=== PATIENT | male | born 1975 | race Caucasian/White ===

== ENCOUNTER 2022-12-05 07:47 | Observation (INO) | payer OTHER ==
[2022-12-05] MEDS ORDERED: SODIUM CHLORIDE 0.9% 1,000 ML IV STA (08:00)
[2022-12-05 08:11] LABS: BASOPHILS % (AUTO) 0.3 %; EOSINOPHILS % (AUTO) 0.5 %; HCT - HEMATOCRIT 45.4 % (42.0-52.0); HGB - HEMOGLOBIN 15.9 g/dL (14.0-18.0); LYMPHOCYTES # (AUTO) 0.8 10^3/uL (1.5-3.5); MEAN CORPUSCULAR HEMOGLOBIN 31.3 pg (27.0-31.0); MEAN CORPUSCULAR VOLUME 89.4 fL (80.0-94.0); MEAN PLATELET VOLUME 8.7 fL (7.4-11.4); MONOCYTES # (AUTO) 0.9 10^3/uL (0.0-1.0); MONOCYTES % (AUTO) 12.6 %; NEUTROPHILS # (AUTO) 5.5 10^3/uL (1.5-6.6); NEUTROPHILS % (AUTO) 75.5 %; PLT - PLATELET COUNT 252 10^3/uL (130-450); RED BLOOD COUNT 5.08 10^6/uL (4.70-6.10); WHITE BLOOD COUNT 7.3 x10^3/uL (4.8-10.8)
[2022-12-05 08:12] LABS: GLUCOSE, URINE (UA) NEGATIVE (NEGATIVE); KETONES,URINE (UA) 15 mg/dL (NEGATIVE); LEUKOCYTE ESTERASE, URINE NEGATIVE (NEGATIVE); NITRITE,URINE NEGATIVE (NEGATIVE); OCCULT BLOOD,URINE SMALL (NEGATIVE); PROTEIN,URINE 30 mg/dL (NEGATIVE); UROBILINOGEN,URINE 0.2 (NORMAL) E.U./dL (NORMAL)
[2022-12-05 08:17] LABS: BILIRUBIN,URINE NEGATIVE (NEGATIVE); CLARITY,URINE CLEAR (CLEAR); ICTOTEST,URINE NEGATIVE
[2022-12-05 08:19] LABS: WBC,URINE 0-3 /HPF (0-3)
[2022-12-05 08:20] LABS: BACTERIA,URINE Few /HPF (None Seen); MUCUS,URINE Few Strands; SQUAMOUS EPITHELIAL CELL,UR RARE Squamous (<= Few)
--- NOTE | 2022-12-05 08:20 | ED Physician Documentation ---
History of Present Illness - Stated complaint Stated Complaint: ABD PX - Chief complaint Chief Complaint: Abd Pain - History obtained from History obtained from: Patient - Additonal information Additional information: The patient comes to the emergency department chief complaint of left lower quadrant pain for about the last 5 days. He states that he has a baseline of discomfort but then especially at night, he will feel escalations in his pain which feels sharp. He states he has not really been having much of any bowel movements except for a little liquid stool here and there. He states he has not been nauseated but just was not having much of an appetite and so for the first 3 days, he really did not eat anything. He states it did not help and he was starting to get weak with hunger so then he started to eat again, but has not been back up to his full diet for the last couple days. He denies blood in his stools. No vomiting. No fever or chills that he has noticed except that he d oes sweat a bit when the pain gets bad. He has a history of both kidney stone and diverticulitis previously. He states he had to have lithotripsy on one of the stones because it was 7 mm and would not pass. He states this feels more like when he had diverticulitis. No other complaints at this time. PD PAST MEDICAL HISTORY - Past Medical History Past Medical History: Yes GI: Diverticulitis : Kidney stones - Past Surgical History Past Surgical History: Yes - Present Medications Home Medications: Ambulatory Orders Medication Instructions Recorded Confirmed No Known Home Medications 12/05/22 12/05/22 - Allergies Allergies/Adverse Reactions: Allergies Allergy/AdvReac Type Severity Reaction Status Date / Time No Known Drug Allergies Allergy Verified 12/05/22 07:53 - Social History Does the pt smoke?: No Smoking Status: Never smoker Does the pt drink ETOH?: No Does the pt have substance abuse?: No - Immunizations Immunizations are current?: Yes PD ED PE NORMAL - Vitals Vital signs reviewed: Yes - General General: Alert and oriented X 3, No acute distress, Well developed/nourished - HEENT HEENT: Atraumatic, PERRL, EOMI, Moist mucous membranes - Neck Neck: Supple, no meningeal sign - Cardiac Cardiac: RRR, No murmur, Strong equal pulses - Respiratory Respiratory: No respiratory distress, Clear bilaterally - Abdomen Abdomen: Soft, Non distended, Other (moderate tenderness, LLQ, no rebound or guarding. No flank tenderness.) - Derm Derm: Warm and dry - Extremities Extremities: No deformity - Neuro Neuro: Alert and oriented X 3 - Psych Psych: Normal mood, Normal affect Results - Vitals Vitals: Vital Signs - 24 hr 12/05/22 12/05/22 07:52 11:31 Temperature 36.6 C Heart Rate 94 64 Respiratory 15 19 Rate Blood Pressure 153/96 H 144/91 H O2 Saturation 99 98 Oxygen O2 Source Room air - Labs Labs: Laboratory Tests 12/05/22 12/05/22 12/05/22 07:54 08:07 08:07 WBC 7.3 RBC 5.08 Hgb 15.9 Hct 45.4 MCV 89.4 MCH 31.3 H MCHC 35.0 RDW 12.0 Plt Count 252 MPV 8.7 Neut # (Auto) 5.5 Lymph # (Auto) 0.8 L [place] # (Auto) 0.9 Eos # (Auto) 0.0 Baso # (Auto) 0.0 Absolute Nucleated RBC 0.00 Nucleated RBC % 0.0 Sodium 139 Potassium 3.4 L Chloride 104 Carbon Dioxide 25 Anion Gap 10.0 BUN 16 Creatinine 1.1 Estimated GFR (MDRD) 72 L Glucose 119 H Calcium 9.1 Total Bilirubin 1.1 H AST 42 ALT 57 Alkaline Phosphatase 51 Total Protein 8.0 Albumin 4.1 Globulin 3.9 Albumin/Globulin Ratio 1.1 Lipase 24 Urine Color DARK YELLOW Urine Clarity CLEAR Urine pH 6.0 Ur Specific [place] 1.025 Urine Protein 30 H Urine Glucose (UA) NEGATIVE Urine Ketones 15 H Urine Occult Blood SMALL H Urine Nitrite NEGATIVE Urine Bilirubin NEGATIVE Urine Urobilinogen 0.2 (NORMAL) Ur Leukocyte Esterase NEGATIVE Urine RBC 6-10 H Urine WBC 0-3 Ur Squamous Epith Cells RARE Squamous Urine Bacteria Few Urine Mucus Few Strands Ur Microscopic Review INDICATED Urine Culture Comments NOT INDICATED - Rads (name of study) CT abdomen and pelvis Relevant Findings:: Final report received, See rad report (Severe sigmoid diverticulitis with perforation and localized emphysema.) PD Medical Decision Making - ED course Complexity details: reviewed results, re-evaluated patient, considered differential, d/w patient ED course: The patient was worked up with laboratory studies, including CBC and ER abdominal panel, as well as UA, all of which were ordered and reviewed by me. The labs were unremarkable. The patient was sent for CT scan of the abdomen and pelvis and found to have severe sigmoid diverticulitis with perforation and localized air. I discussed the case with Dr. Haskins, who is on-call for surgery, and she stated she would like to have the patient come in as an observation for IV antibiotics. I ordered IV Levaquin and Flagyl for the patient and discussed the plan with him. He was agreeable. Departure - Departure Disposition: ED Place in Observation Clinical Impression: Diverticulitis large intestine Qualifiers: Diverticulitis bleeding: without bleeding Diverticulitis complication: with perforation and without abscess Qualified Code(s): K57.20 - Diverticulitis of large intestine with perforation and abscess without bleeding Condition: Serious Discharge Date/Time: 12/05/22 14:37
[2022-12-05 08:24] LABS: ALBUMIN 4.1 g/dL (3.2-5.5); ALBUMIN/GLOBULIN RATIO 1.1 (1.0-2.2); BILIRUBIN,TOTAL 1.1 mg/dL (0.2-1.0); CALCIUM 9.1 mg/dL (8.5-10.3); CREATININE 1.1 mg/dL (0.6-1.2); POTASSIUM 3.4 mmol/L (3.5-5.0)
[2022-12-05] MEDS ORDERED: iohexoL-300 100 ML VIAL ONE (09:03)
[2022-12-05] MEDS ORDERED: iohexoL-300 100 ML VIAL IVP ONE (09:15)
--- NOTE | 2022-12-05 09:23 | CT Report ---
PROCEDURE: ABDOMEN/PELVIS W INDICATIONS: LLQ abd pain CONTRAST: 100ml omni 300 TECHNIQUE: After the administration of intravenous contrast, 5 mm thick sections acquired from the diaphragms to the symphysis. 5 mm thick coronal and sagittal reformats were acquired. For radiation dose reducti on, the following was used: automated exposure control, adjustment of mA and/or kV according to althea ent size. COMPARISON: FINDINGS: Image quality: Excellent. Lung bases and heart: Unremarkable. Liver: No solid mass. 57 mm cyst within the right hepatic lobe posterior inferiorly. Gallbladder and biliary tree: Spleen: No splenomegaly. Pancreas: No pancreatic ductal dilation. Adrenals: No adrenal nodule. Kidneys and ureters: No hydronephrosis. No renal cystic lesion which requires follow up. No solid mas s. Multiple nonobstructing bilateral renal calculi, largest of which is in the right interpolar kidne y measuring 6 mm diameter. Bowel and peritoneum: No bowel distension.. Stomach and small bowel are within normal limits. Colon i s nondistended. There is diverticulosis of the descending and sigmoid colon. Severe thickening of the proximal and mid sigmoid colon is present, which demonstrates moderate surrounding fat stranding. Sm all amount of contained pneumoperitoneum adjacent to the thickened colon is present. No free pneumope ritoneum. No pericolonic abscess. Appendix is normal in size but demonstrates a small amount of surro unding fluid. Lymph nodes: No central or retroperitoneal adenopathy. Vessels: No infrarenal aortic aneurysm. PELVIS Reproductive organs: Unremarkable. Bladder: No abnormal wall thickening, accounting for underdistension. Pelvic lymph nodes: No pelvic adenopathy by size criteria. Bones: No aggressive osseous abnormality. Other: No significant ventral or inguinal hernia. IMPRESSION: 1. Severe diverticulitis of the sigmoid colon with adjacent contained pneumoperitoneum. No pericolic abscess. Follow-up colonoscopy recommended to exclude underlying neoplasm. 2. Nonobstructing bilateral renal calculi. 3. Normal diameter appendix with small amount of surrounding fluid. Close clinical follow-up is recom mended with repeat imaging if clinically warranted to exclude developing appendicitis. Reviewed by: Penny Hinds MD on 12/05/2022 9:22 AM PDT Approved by: Penny Hinds MD on 12/05/2022 9:22 AM PDT Station ID: [id number]
[2022-12-05] MEDS ORDERED: KETOROLAC 30 MG/ML VIAL IVP STA (09:37)
[2022-12-05] MEDS ORDERED: HYDROmorphone 1 MG/ML CARPUJECT IVP STA (09:37)
[2022-12-05] MEDS ORDERED: metroNIDAZOLE 250 MG TABLET PO STA (10:49)
[2022-12-05] MEDS ORDERED: levoFLOXacin 250 MG TABLET PO STA (10:49)
[2022-12-05] MEDS ORDERED: metroNIDAZOLE 500 MG/100 ML 500 MG/100 ML BAG IV ONE (10:58)
[2022-12-05] MEDS ORDERED: levoFLOXacin 500 MG/100 ML 500 MG/100 ML BAG IV STA (10:58)
[2022-12-05] MEDS ORDERED: IBUPROFEN 600 MG TABLET PO PRN (13:08)
[2022-12-05] MEDS ORDERED: ONDANSETRON ODT 4 MG TABLET TL PRN (13:08)
[2022-12-05] MEDS ORDERED: MORPHINE 2 MG/ML CARPUJECT IVP PRN (13:08)
[2022-12-05] MEDS ORDERED: ZOLPIDEM 5 MG TABLET PO PRN (13:08)
[2022-12-05] MEDS ORDERED: SODIUM CHLORIDE FLUSH 0.9% 10 ML SYRINGE IVP PRN (13:08)
[2022-12-05] MEDS ORDERED: PROMETHAZINE 25 MG/1 ML VIAL IM PRN (13:08)
--- NOTE | 2022-12-05 13:14 | HISTORY & PHYSICAL EXAMINATION ---
Chief Complaint - Chief Complaint Chief Complaint: Abdominal pain Abdominal Pain HPI - Admitted From Admitted from: ED - History Obtained From History obtained from: Patient Exam limitations: No limitations - History of Present Illness Severity at the worst: Severe Pain Quality: Sharp Context-Pain started w/: Rest Timing: Gradual onset Duration: Days: (6) Improved with: Nothing PMH/PSH - Past Medical History GI: positive: Diverticulitis : positive: Kidney stones Social & Family Hx - Living Situation Living Arrangement: At home - Social History Does the pt smoke?: No Smoking Status: Never smoker Does the pt drink ETOH?: No Does the pt have substance abuse?: No Meds/Allgy - Home Medications Home Medications: Ambulatory Orders Medication Instructions Recorded Confirmed No Known Home Medications 12/05/22 12/05/22 - Allergies Allergies/Adverse Reactions: Allergies Allergy/AdvReac Type Severity Reaction Status Date / Time No Known Drug Allergies Allergy Verified 12/05/22 07:53 Review of Systems - Constitutional Constitutional: reports: Night sweats - Gastrointestinal Gastrointestinal: reports: Abdominal pain - All Other Systems All Other Systems: reports: Reviewed and negative Exam - Vital Signs Reviewed Vital Signs: Yes Vital Signs: Vital Signs x48h Temp Pulse Resp BP Pulse Ox 12/05/22 11:31 64 19 144/91 H 98 12/05/22 07:52 97.9 F 94 15 153/96 H 99 - Physical Exam General Appearance: positive: No acute distress, Alert Eyes Bilateral: positive: Normal inspection ENT: positive: ENT inspection nml Neck: positive: Nml inspection Respiratory: positive: Chest non-tender, No respiratory distress Cardiovascular: positive: Regular rate & rhythm Peripheral Pulses: positive: 2+ Abdomen: positive: Other (Soft, nondistended, tender to palpation in left lower quadrant without evidence of peritonitis.) Back: positive: Nml inspection Skin: positive: Color nml, No rash Extremities: positive: Nml appearance Neurologic/Psychiatric: positive: Oriented x3 Results - Lab Results Fish Bones: 12/05/22 08:07 12/05/22 08:07 Other Lab Results: Lab Results x24hrs 12/05/22 12/05/22 12/05/22 Range/Units 08:07 08:07 07:54 WBC 7.3 (4.8-10.8) x10^3/uL RBC 5.08 (4.70-6.10) 10^6/uL Hgb 15.9 (14.0-18.0) g/dL Hct 45.4 (42.0-52.0) % MCV 89.4 (80.0-94.0) fL MCH 31.3 H (27.0-31.0) pg MCHC 35.0 (32.0-36.0) g/dL RDW 12.0 (12.0-15.0) % Plt Count 252 (130-450) 10^3/uL MPV 8.7 (7.4-11.4) fL Neut # (Auto) 5.5 (1.5-6.6) 10^3/uL Lymph # (Auto) 0.8 L (1.5-3.5) 10^3/uL [place] # (Auto) 0.9 (0.0-1.0) 10^3/uL Eos # (Auto) 0.0 (0.0-0.7) 10^3/uL Baso # (Auto) 0.0 (0.0-0.1) 10^3/uL Absolute Nucleated RBC 0.00 x10^3/uL Nucleated RBC % 0.0 /100WBC Sodium 139 (135-145) mmol/L Potassium 3.4 L (3.5-5.0) mmol/L Chloride 104 (101-111) mmol/L Carbon Dioxide 25 (21-32) mmol/L Anion Gap 10.0 (6-13) BUN 16 (6-20) mg/dL Creatinine 1.1 (0.6-1.2) mg/dL Estimated GFR (MDRD) 72 L (>89) Glucose 119 H (70-100) mg/dL Calcium 9.1 (8.5-10.3) mg/dL Total Bilirubin 1.1 H (0.2-1.0) mg/dL AST 42 (10-42) IU/L ALT 57 (10-60) IU/L Alkaline Phosphatase 51 (42-121) IU/L Total Protein 8.0 (6.7-8.2) g/dL Albumin 4.1 (3.2-5.5) g/dL Globulin 3.9 (2.1-4.2) g/dL Albumin/Globulin Ratio 1.1 (1.0-2.2) Lipase 24 (22-51) U/L Urine Color DARK YELLOW Urine Clarity CLEAR (CLEAR) Urine pH 6.0 (5.0-7.5) PH Ur Specific [place] 1.025 (1.002-1.030) Urine Protein 30 H (NEGATIVE) mg/dL Urine Glucose (UA) NEGATIVE (NEGATIVE) mg/dL Urine Ketones 15 H (NEGATIVE) mg/dL Urine Occult Blood SMALL H (NEGATIVE) Urine Nitrite NEGATIVE (NEGATIVE) Urine Bilirubin NEGATIVE (NEGATIVE) Urine Urobilinogen 0.2 (NORMAL) (NORMAL) E.U./dL Ur Leukocyte Esterase NEGATIVE (NEGATIVE) Urine RBC 6-10 H (0-5) /HPF Urine WBC 0-3 (0-3) /HPF Ur Squamous Epith Cells RARE Squamous (<= Few) Urine Bacteria Few (None Seen) /HPF Urine Mucus Few Strands Ur Microscopic Review INDICATED Urine Culture Comments NOT INDICATED - Diagnostic Imaging Results Diagnostic Imaging Results: positive: Final report reviewed, Read independently Impression/Plan - Problem List Problem List: Diverticulitis I have explained the disease process of diverticulitis to the patient, and explained that he has a small contained microperforation. He will be admitted for observation, IV antibiotics and bowel rest. We will recheck a CBC in the morning. If this is stable and he remains afebrile we will plan for DC home on p.o. antibiotics.
--- NOTE | 2022-12-05 14:21 | PHARMACY PROGRESS NOTE ---
- Best Possible Medication History Admit Date and Time: 12/05/22 3758 Processed by: Nursing As the person ultimately responsible for medication therapy, providers are able to order a medication from an existing home medication list in [facility] via the "Reconcile Routine" prior to Confirmation of that medication by customer support associate. Such practice is discouraged except when the physician, in their clinical judgment, deems that a medical need exists for a medication without regard to previous use.
[2022-12-05] MEDS: D5.45NS W/20 MEQ KCL 1,000 ML IV SCH (15:42)
[2022-12-05] MEDS: SODIUM CHLORIDE FLUSH 0.9% 10 ML SYRINGE IVP SCH (15:43)
[2022-12-05] MEDS: metroNIDAZOLE 500 MG/100 ML 500 MG/100 ML BAG IV SCH (18:51)
[2022-12-05] MEDS: HYDROcod/ACETAM 5/325 MG TABLET PO PRN (22:20)
[2022-12-06] MEDS: SODIUM CHLORIDE FLUSH 0.9% 10 ML SYRINGE IVP SCH ×2 (00:48→10:57)
[2022-12-06] MEDS: D5.45NS W/20 MEQ KCL 1,000 ML IV SCH ×2 (02:11→12:22)
[2022-12-06] MEDS: metroNIDAZOLE 500 MG/100 ML 500 MG/100 ML BAG IV SCH ×2 (02:45→12:20)
[2022-12-06] MEDS: HYDROcod/ACETAM 5/325 MG TABLET PO PRN (05:12)
[2022-12-06 06:02] LABS: HCT - HEMATOCRIT 36.4 % (42.0-52.0); HGB - HEMOGLOBIN 12.9 g/dL (14.0-18.0); MEAN CORPUSCULAR HGB CONC 35.4 g/dL (32.0-36.0); MEAN CORPUSCULAR VOLUME 90.3 fL (80.0-94.0); MEAN PLATELET VOLUME 8.8 fL (7.4-11.4); RED BLOOD COUNT 4.03 10^6/uL (4.70-6.10); RED CELL DISTRIBUTION WIDTH 12.2 % (12.0-15.0); WHITE BLOOD COUNT 5.1 x10^3/uL (4.8-10.8)
[2022-12-06] MEDS ORDERED: levoFLOXacin 500 MG/100 ML 500 MG/100 ML BAG IV SCH (10:00)
--- NOTE | 2022-12-06 11:11 | Discharge Plan ---
Discharge Plan Problem Reviewed?: Yes Disposition: Home, Self Care Condition: Good Prescriptions: metroNIDAZOLE [Flagyl] 500 mg PO TID #21 tablet levoFLOXacin [Levaquin] 250 mg PO ONCE #7 tablet Diet: Soft (low residual) Activity Restrictions: Activity as Tolerated Shower Restrictions: No Driving Restrictions: No Plan of Treatment: [place] home on low residual diet and PO antibiotics No Smoking: If you smoke, Please STOP! Call for help. Follow-up with: Govind Morelos MD [Provider Admit Priv/Credential] -
--- NOTE | 2022-12-06 11:14 | DISCHARGE SUMMARY ---
Discharge Summary Admit Date: 12/05/22 Discharge Date: 12/06/22 Discharging Provider: kris Condition at Discharge: Good Discharge Disposition: 01 Home, Self Care - DIAGNOSES Admission Diagnoses: perforated diverticulitis Discharge Diagnoses with Status of Each Condition: stable - HOSPITAL COURSE Hospital Course: pt admitted for perforated diverticulitis. He has improved pain and return of bowel function. - ALLERGIES Allergies/Adverse Reactions: Allergies Allergy/AdvReac Type Severity Reaction Status Date / Time No Known Drug Allergies Allergy Verified 12/05/22 07:53 - MEDICATIONS Home Medications: Ambulatory Orders Medication Instructions Recorded Confirmed levoFLOXacin [Levaquin] 250 mg PO ONCE #7 tablet 12/06/22 metroNIDAZOLE [Flagyl] 500 mg PO TID #21 tablet 12/06/22 - PHYSICAL EXAM AT DISCHARGE General Appearance: positive: No acute distress Eyes Bilateral: positive: Normal inspection Neck: positive: Nml inspection Respiratory: positive: Chest non-tender, No respiratory distress Cardiovascular: positive: Regular rate & rhythm Abdomen: positive: Non-tender, No distention Skin: positive: Color nml Extremities: positive: Non-tender Neurologic/Psychiatric: positive: Oriented x3 - LABS Result Diagrams: 12/06/22 05:10 12/05/22 08:07 - FOLLOW UP Follow Up: [address] Morelos - TIME SPENT Time Spent in Discharge (Minutes): 20
[2022-12-06 13:38] VITALS: BP 147/78
== END 2022-12-06 14:00 | disposition home or self-care (01) ==
LOC: ED 07:47 → MS2 13:08
PROVIDERS: ADMIT Specialist; ATTEND Specialist
DX: K57.20 Diverticulitis of large intestine with perforation and abscess without bleeding (principal)
CPT/HCPCS: 36415; 74177; 80053; 81001; 83690; 85025; 85027; 96365; 96366; 96367; 96368; 96375; 99284; 99285; A9270; G0378; J1170; Q9967; 81003; 87086